=== PATIENT | female | born 1960 | race African-American/Black ===

== ENCOUNTER 2019-02-16 09:38 | Day surgery (SDC) | payer OTHER ==
[2019-02-09 11:54] VITALS: BMI 24.6
[2019-02-16] MEDS ORDERED: BUPIVACAINE HCL/PF 0.5% (5MG/ML) 10 ML VIAL ONE ×2 (13:09→13:56)
[2019-02-16] MEDS ORDERED: MORPHINE SULFATE 10 MG/1 ML *VIAL ONE (13:13)
[2019-02-16] MEDS ORDERED: MIDAZOLAM HCL 2 MG/2 ML SINGLE DOSE VIAL ONE (13:37)
[2019-02-16] MEDS ORDERED: PROPOFOL 20 ML ONE (13:37)
[2019-02-16] MEDS ORDERED: LIDOCAINE HCL/PF 2% SDV 5ML VIAL ONE (13:39)
[2019-02-16] MEDS ORDERED: DEXAMETHASONE SOD PHOSPHATE 4 MG/1 ML VIAL ONE (13:39)
[2019-02-16] MEDS ORDERED: ONDANSETRON 4 MG/2 ML VIAL ONE (13:39)
[2019-02-16] MEDS ORDERED: ceFAZolin SODIUM 1 GM VIAL ONE (13:56)
[2019-02-16 15:25] VITALS: TEMP 98
[2019-02-16 16:21] VITALS: BP 155/72; PULSE 68
--- NOTE | 2019-02-17 08:00 | OP ---
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 PROCEDURE PERFORMED: Operative arthroscopy of the right knee with partial medial and lateral meniscectomy, chondroplasty, synovectomy, joint debridement. SURGEON: Darrel Garcia MD LINUX PROGRAMMER: Syed Tehodore. ANESTHESIA: Dr. Hunt. ANESTHESIA: General anesthesia. DESCRIPTION OF PROCEDURE: Patient consisted of the patient being brought into the operating room and gently transferred from the stretcher to the OR table with all bony prominences well padded. The right leg was prepped and draped in a sterile fashion. The patient was given intravenous antibiotics and copious irrigation throughout the procedure to minimize risk of infection. A complete risk, benefit, alternative discussion was conducted with the patient, which was inclusive of, but not limited to, infection, bleeding, , paralysis, increased pain, need for repeat surgery. The patient asked questions and agreed to procedure. Appropriate time-out was conducted, which was inclusive of, but not limited to, surgeon, type of surgery, location of surgery, anesthesiologist, and type of anesthesia. Following sterile preparation and draping of the patient, the leg was exsanguinated using rubber Esmarch bandage and tourniquet inflated to 350 mmHg. Suprapatella, medial, and lateral joint line portals were used to introduce the arthroscope and arthroscopic instruments. The right knee was examined. There was noted to be hypertrophic synovium in the suprapatellar pouch. Partial synovectomy was performed. Anterior surface of the patella damage consisted of chondromalacia. This was removed using shaver and radiofrequency wand. Intercondylar region was noted also to have chondromalacia changes and damage consistent with impaction injury. Medial and lateral gutters without plaque or loose body. Chondroplasty was performed also on the intercondylar region at the femur. The medial and lateral gutters without plaque or loose body. Medial meniscus was found to have a tear of the posterior horn, which was resected using shaver and radiofrequency wand. Intercondylar region was noted to have joint debris, and joint debridement was performed. Lateral meniscus was found to have a tear of the posterior horn. This was resected using a shaver and radiofrequency wand. Anterior cruciate ligament and posterior cruciate ligaments were found to be intact. The knee was copiously irrigated with sterile saline irrigant. The wound was closed using 4-0 undyed Vicryl followed by Steri-Strips, Xeroform, 4x4s, sterile Webril, MACHELLE bandage, knee immobilizer. The tourniquet was deflated after approximately 20 minutes of tourniquet time. There were no known intraoperative complications. Yomaira [id number]
== END 2019-02-16 16:25 | disposition home or self-care (01) ==
LOC: FASU 09:38
PROVIDERS: ATTEND Orthopaedic Surgery
PROC: 0SBC4ZZ Excision of Right Knee Joint, Percutaneous Endoscopic Approach (ICD-10-PCS; 2019-02-16)
PROC: 0SBC4ZZ Excision of Right Knee Joint, Percutaneous Endoscopic Approach (ICD-10-PCS; 2019-02-16)
PROC: 0SBC4ZZ Excision of Right Knee Joint, Percutaneous Endoscopic Approach (ICD-10-PCS; principal; 2019-02-16 14:13)
DX: S83.241A Other tear of medial meniscus, current injury, right knee, initial encounter (principal); S83.281A Other tear of lateral meniscus, current injury, right knee, initial encounter; M67.261 Synovial hypertrophy, not elsewhere classified, right lower leg; M22.41 Chondromalacia patellae, right knee
CPT/HCPCS: 94760